=== PATIENT | female | born 1995 | race Caucasian/White ===

== ENCOUNTER 2021-02-06 14:05 | Emergency (ER) | payer SELFPAY ==
--- NOTE | ~2021-02-06 | CT_ITS ---
EXAMINATION: CT ABDOMEN AND PELVIS WITH CONTRAST CLINICAL INFORMATION: Left-sided pain COMPARISON: None TECHNIQUE: Multidetector volumetric images were obtained from the superior aspect of the liver through the pubic symphysis following administration 85 mL of Omnipaque 350 intravenous contrast. Sagittal and coronal reformatted images were obtained on the technologist's workstation. Oral contrast: Yes This CT examination was performed using dose optimization techniques as appropriate, variously including the following: *Automated exposure control *Adjustment of mA and/or kV according to patient size (this includes techniques or standardized protocols for targeted exams where dose is matched to indication/reason for exam; i.e. extremities or head) *Use of iterative reconstruction technique DLP: 589 mGy-cm FINDINGS: LUNG BASES: The visualized lung bases are unremarkable. LIVER, GALLBLADDER, AND BILIARY TREE: The liver is normal in size, shape, and attenuation. No focal hepatic lesion or biliary ductal dilatation is present. The gallbladder is unremarkable with no evidence of radiopaque gallstones, gallbladder wall thickening, or obvious pericholecystic inflammatory changes. PANCREAS: Unremarkable. SPLEEN: Unremarkable. ADRENAL GLANDS: Unremarkable. KIDNEYS AND URETERS: The kidneys are normal in size, shape, and attenuation. No hydronephrosis, hydroureter, or calculi seen. No perinephric stranding. BLADDER: Unremarkable. GASTROINTESTINAL TRACT: The small and large bowel are unremarkable. The appendix is unremarkable. ABDOMINAL WALL: No significant hernia is appreciated. LYMPH NODES: Normal. VASCULAR: Unremarkable PELVIC VISCERA:There is an IUD in the uterus in satisfactory position. There is a 3 x 3.5 x 4.8 cm left ovarian cyst. This appears complex with septation. There is a small amount of fluid in the pelvis. OSSEOUS STRUCTURES: Unremarkable. CT/CT abdomen pelvis w con IMPRESSION: IUD in the uterus in satisfactory position. 3 x 3.5 x 4.8 cm slightly complex left ovarian cyst all amount of fluid in the pelvis.
[2021-02-06 14:14] VITALS: BP 142/76; PULSE 80; RESP 16; TEMP 36.7; O2SAT 99
[2021-02-06 16:36] LABS: Glucose Urine UA NEG (NEG); Leukocyte Esterase Urine 2+ (NEG); Nitrite Urine NEG (NEG); Specific Gravity - Urine <= 1.005 (1.005-1.025); UACC Culture Trigger YES; Urine Blood 1+ (NEG); Urine Ketones NEG (NEG); Urine Protein NEG (NEG-TRACE)
[2021-02-06 16:37] LABS: Basophils Absolute Auto 0.1 X10*3/uL (0.0-0.2); Basophils Percent Auto 0.4 % (0-2); Eosinophils Absolute Auto 0.2 X10*3/uL (0.0-0.4); Eosinophils Percent Auto 1.3 % (0-4); Hematocrit 37.3 % (37-47); Hemoglobin 12.2 g/dl (12.0-16.0); Imm Gran Abs Auto 0.06 X10*3/uL (0.00-0.03); Imm Gran Pct Auto 0.4 % (0.0-0.4); Lymphocytes Absolute Auto 3.3 X10*3/uL (1.2-4.9); MANUAL DIFF FLAG NO; Mean Corpuscular HGB Conc 32.7 g/dl (31.0-35.0); Mean Corpuscular Hemoglobin 28.2 pg (27.0-33.0); Mean Corpuscular Volume 86.3 fL (80-98); Mean Platelet Volume 10.4 fL (9.4-12.3); Monocytes Absolute Auto 1.3 X10*3/uL (0.1-1.2); Monocytes Percent Auto 8.5 % (2-11); Neutrophils Absolute Auto 10.6 X10*3/uL (2.0-8.3); Neutrophils Percent Auto 68.4 % (45-73); Platelet Count 312 X10*3/uL (160-400); Red Blood Count 4.32 X10*6/uL (4.20-5.50); Red Cell Distribution Width 12.1 % (11.0-16.0); White Blood Count 15.5 X10*3/uL (4.8-10.8)
--- NOTE | 2021-02-06 16:44 | ED_ITS ---
HPI - Abdominal Pain General Chief Complaint: Abdominal Pain Stated Complaint: rabies exposure Time Seen by Provider: 02/06/21 16:09 Source: patient Mode of arrival: ambulatory Limitations: no limitations History of Present Illness HPI narrative: 25-year-old female with a past medical history of PCOS, endometriosis, migraine headaches and supraventricular arrhythmia presenting to the ED with complaints of left upper quadrant/left flank/left lower quadrant/left back pain for the past 3 days worse today. She reports associated chills. She also reports that she is here for rabies vaccination and immunoglobulin due to she rescued a baby raccoon and when her and her brought [facility] the [facility] 2 weeks later they called her and said that the raccoon tested positive for rabies and they instructed her and her to be vaccinated. Denies any fevers, neck pain/stiffness, nausea/vomiting, chest pain, shortness of breath, dysuria, hematuria, abnormal vaginal discharge, diarrhea, constipation or any other symptoms complaints or concerns at this time. MD elicited complaint: abdominal pain Pertinent past history: other (PCOS and endometriosis) Onset (ago): day(s) (3 days worse today) Pain Consistency: constant Location: LUQ, LLQ, L flank and other (Left back) Severity: severe Pain scale (0-10): 10 Quality: aching Radiation: none Migration to: no migration Exacerbating factors: nothing Relieving factors: nothing Associated symptoms: denies other symptoms Related Data Previous Rx's Medication Instructions Recorded levofloxacin 750 mg PO DAILY 7 Days #7 tab 02/06/21 oxycodone 5 mg PO Q8H PRN #10 tab 02/06/21 Allergies Allergy/AdvReac Type Severity Reaction Status Date / Time sumatriptan Allergy Rash Verified 02/06/21 14:16 [place] vaccine Allergy Unknown Uncoded 02/06/21 14:40 Review of Systems Review of Systems Constitutional : Positive chills, No Weight loss, No Fever, No Night Sweats, No Fatigue, No Malaise ENT/Mouth: No ear pain, No sore throat, No Difficulty swallowing Cardiovascular : No Chest Pain, No SOB, No Dyspnea on Exertion, No Orthopnea, No Edema, No Palpitations Respiratory : No Cough, No Sputum, No Wheezing, No Dyspnea Gastrointestinal : Positive abdominal pain, No Nausea, No Vomiting, No Diarrhea, No blood streaked emesis, No coffee-ground emesis, No gross hemateme sis, No blood streak stool, No gross hematochezia, No Melena Genitourinary : No irregular bleeding, No Dysuria, No Urinary Frequency, No Hematuria,No Urinary Incontinence, No Urgency, No Flank Pain Musculoskeletal : No joint pain, No Myalgias, No Joint Swelling Skin : No Skin Lesions, No rash Neuro : No Weakness, No Numbness, No Paresthesias, No Loss of Consciousness, NoDizziness, No Headache Psych : No Social Issues, Heme/Lymph: No Bruising, No Bleeding,No Lymphadenopathy Endocrine : No Polyuria, No Polydipsia, No Temperature Intolerance Yes all other systems are reviewed and are negative Physical Exam Vital Signs: Vital Signs: Last Vital Signs Temp 98.1 F 02/06/21 14:14 Pulse 80 02/06/21 14:14 Resp 16 02/06/21 14:14 BP 142/76 H 02/06/21 14:14 Pulse Ox 99 02/06/21 14:14 Body Mass Index 28.1 vital signs have been reviewed as normal and appeared to be correct. Blood pressure hypertensive 142/76. Heart rate normal. Respiration rate normal. Temperature normal. Oxygen saturation normal. Appearance: Alert. Oriented X3. No acute distress. Head: Normal external exam. Normocephalic. Eyes: PERRLA. EOMI. Conjunctiva and sclera normal. Eyelids normal. ENT: Pharynx normal. Uvula midline. Moist mucous membranes. Neck: Normal inspection. Neck supple. FROM. No adenopathy. No meningeal signs. CVS: Normal heart rate and rhythm. Heart sound normal. No murmurs noted. Pulses normal throughout. Respiratory: No respiratory distress. Painless inspiration. Breath sounds n ormal. No wheezes/rales/rhonchi noted. Chest nontender. No accessory muscle usage noted or decreased air movement noted. Abdomen: Soft and moderate tenderness to left upper quadrant/left lower quadr ant/left flank with guarding. Nondistended. No rigidity. Bowel sounds normal in all 4 quadrants. No distention noted. No organomegaly noted. No visible injury noted. No rebound tenderness. Negative Rovsing sign. Negative obturator's sign. Negative psoas sign. Negative Tavares sign. Back: Positive left CVA tenderness. No right CVA tenderness is noted. Full range of motion noted. Skin: Skin warm and dry. Normal skin color. Normal skin turgor. No rashes/lesions/lacerations noted. Extremities: Extremities exhibit normal range of motion. Extremities nontender. Neuro: Oriented X 3. No motor deficit. No sensory deficit. Reflexes normal. Normal steady gait. Course Course Course Narrative: 16pm - 25-year-old female with a past medical history of PCOS, endometriosis, migraine headaches and supraventricular arrhythmia presenting to the ED with complaints of left upper quadrant/left flank/left lower quadrant/left back pain for the past 3 days worse today. She reports associated chills. - Patient also has a separate complaint for positive rabies exposure after she took in a raccoon that was a baby for approximately 1 month and she brought it to the [facility] [place] and they called her and told her that the baby raccoon tested positive for rabies and they recommended her to get immunoglobulin and vaccine. Plan: Labs, CT scan abdomen pelvis IV contrast. Provide a L of IV fluids 15 mg of Toradol. I will give the patient the rabies immunoglobulin and her 1st rabies vaccine patient understands that she has to come back for 3 additional rabies vaccines then re-evaluate. Reevaluation(s) Reevaluation #1: - [place] [id number]. Otherwise all other labs are within normal limits. - UA with +2 leukocytes and 10-14 white blood cells consitent with UTI. Neg P regnancy. - CT scan of abd/pelvis c IV contrast revealed 3 x 3.5 x 4.8 cm slightly complex left ovarian cyst otherwise no other acute processes. - then when I went into the patient's room to discharge her she reported that she also wants to mention that she has noticed a lump to her left inner breast for the past 2 months and she is requesting an ultrasound to evaluate for possible benign lump versus malignancy - I discussed this with ultrasound and they report that this is not appropriate as we will not have proper follow-up if we found anything abnormal therefore I explained to the patient that she will be [facility] evaluation and treatment for her left breast lump and to return if any new or worsening symptoms. Also I will treat for UTI. Patient understands agrees with this plan Time: 19:49 MDM - Abdominal Pain Medical Records Attestation: I reviewed the patient's medical records. Lab Data Attestation: I reviewed the patient's lab results. Result diagrams: 02/06/21 16:19 02/06/21 16:19 Labs: Lab Results 02/06/21 02/06/21 02/06/21 Range/Units 16:19 16:19 16:19 WBC 15.5 H (4.8-10.8) X10*3/uL RBC 4.32 (4.20-5.50) X10*6/uL Hgb 12.2 (12.0-16.0) g/dl Hct 37.3 (37-47) % MCV 86.3 (80-98) fL MCH 28.2 (27.0-33.0) pg MCHC 32.7 (31.0-35.0) g/dl RDW 12.1 (11.0-16.0) % Plt Count 312 (160-400) X10*3/uL MPV 10.4 (9.4-12.3) fL Immature Gran % (Auto) 0.4 (0.0-0.4) % Neut % (Auto) 68.4 (45-73) % Lymph % (Auto) 21.0 (20-40) % [place] % (Auto) 8.5 (2-11) % Eos % (Auto) 1.3 (0-4) % Baso % (Auto) 0.4 (0-2) % Lymph # (Auto) 3.3 (1.2-4.9) X10*3/uL [place] # (Auto) 1.3 H (0.1-1.2) X10*3/uL Eos # (Auto) 0.2 (0.0-0.4) X10*3/uL Baso # (Auto) 0.1 (0.0-0.2) X10*3/uL Abs Immat Gran (auto) 0.06 H (0.00-0.03) X10*3/uL Absolute Neuts (auto) 10.6 H (2.0-8.3) X10*3/uL Absolute Nucleated RBC 0.000 (0.0-0.012) X10*3/uL Nucleated RBC % (auto) 0.0 (0.0-0.2) /100WBC Sodium 141 (135-145) mmol/L Potassium 4.0 (3.3-5.1) mmol/L Chloride 105 (96-108) mmol/L Carbon Dioxide 27 (22-29) mmol/L Anion Gap 13 (12-20) BUN 8 L (9-16) mg/dL Creatinine 0.80 (0.5-1.4) mg/dL Estim Creat Clear Calc 105.2 Estimated GFR > 60 Random Glucose 76 (60-115) mg/dL Calcium 9.9 (8.4-10.2) mg/dL Magnesium 1.9 (1.6-2.6) mg/dL Total Bilirubin 0.6 (0.0-1.0) mg/dL AST 14 (5-31) U/L ALT 11 (0-31) U/L Alkaline Phosphatase 66 (39-117) U/L Total Protein 8.0 (6.5-8.0) g/dL Albumin 4.9 (3.5-5.0) g/dL Lipase 20 (8-78) U/L Urine Color Urine Appearance Urine pH (5.0-8.0) Ur Specific [place] (1.005-1.025) Urine Protein (NEG-TRACE) MG/DL Urine Glucose (UA) (NEG) MG/DL Urine Ketones (NEG) MG/DL Urine Blood (NEG) Urine Nitrite (NEG) Ur Leukocyte Esterase (NEG) Urine RBC (0) /HPF Urine WBC (0-4) /HPF Urine WBC Clumps Ur Squamous Epith Cells /LPF Urine Bacteria /LPF Urine Test (NEGATIVE) 02/06/21 02/06/21 Range/Units 16:19 17:39 WBC (4.8-10.8) X10*3/uL RBC (4.20-5.50) X10*6/uL Hgb (12.0-16.0) g/dl Hct (37-47) % MCV (80-98) fL MCH (27.0-33.0) pg MCHC (31.0-35.0) g/dl RDW (11.0-16.0) % Plt Count (160-400) X10*3/uL MPV (9.4-12.3) fL Immature Gran % (Auto) (0.0-0.4) % Neut % (Auto) (45-73) % Lymph % (Auto) (20-40) % [place] % (Auto) (2-11) % Eos % (Auto) (0-4) % Baso % (Auto) (0-2) % Lymph # (Auto) (1.2-4.9) X10*3/uL [place] # (Auto) (0.1-1.2) X10*3/uL Eos # (Auto) (0.0-0.4) X10*3/uL Baso # (Auto) (0.0-0.2) X10*3/uL Abs Immat Gran (auto) (0.00-0.03) X10*3/uL Absolute Neuts (auto) (2.0-8.3) X10*3/uL Absolute Nucleated RBC (0.0-0.012) X10*3/uL Nucleated RBC % (auto) (0.0-0.2) /100WBC Sodium (135-145) mmol/L Potassium (3.3-5.1) mmol/L Chloride (96-108) mmol/L Carbon Dioxide (22-29) mmol/L Anion Gap (12-20) BUN (9-16) mg/dL Creatinine (0.5-1.4) mg/dL Estim Creat Clear Calc Estimated GFR Random Glucose (60-115) mg/dL Calcium (8.4-10.2) mg/dL Magnesium (1.6-2.6) mg/dL Total Bilirubin (0.0-1.0) mg/dL AST (5-31) U/L ALT (0-31) U/L Alkaline Phosphatase (39-117) U/L Total Protein (6.5-8.0) g/dL Albumin (3.5-5.0) g/dL Lipase (8-78) U/L Urine Color STRAW Urine Appearance CLEAR Urine pH 7.0 (5.0-8.0) Ur Specific [place] <= 1.005 (1.005-1.025) Urine Protein NEG (NEG-TRACE) MG/DL Urine Glucose (UA) NEG (NEG) MG/DL Urine Ketones NEG (NEG) MG/DL Urine Blood 1+ H (NEG) Urine Nitrite NEG (NEG) Ur Leukocyte Esterase 2+ H (NEG) Urine RBC 1-4 (0) /HPF Urine WBC 10-14 H (0-4) /HPF Urine WBC Clumps NOTED Ur Squamous Epith Cells 1+ /LPF Urine Bacteria 2+ /LPF Urine Test NEGATIVE (NEGATIVE) Discharge Plan Discharge Clinical Impression: Contact with and exposure to rabies, UTI (urinary tract infection), Breast lump Patient Disposition: Home, Self-Care Instructions: Rabies Vaccine (By injection), Rabies Immune Globulin (By injection), Urinary Tract Infection in Women (ED), Rabies (ED), Breast Mass (ED) Additional Instructions: You need to follow-up with short-stay surgery for the rest of your rabies vaccine on 02/09/2021, 02/13/2021 and 02/20/2021. You also need to [facility] with the paperwork that I gave you at [facility] in [place] or [address] [place] [address] in [place] at [phone] Prescriptions: New levofloxacin 750 mg tablet 750 mg PO DAILY 7 Days Qty: 7 RF: 0 oxycodone 5 mg tablet 5 mg PO Q8H PRN (Reason: pain ) Qty: 10 RF: 0 Referrals: Jono Friedman MD [Physician] - 2 days Stand Alone Forms: Work/School Release Print Language: Ma[place] [facility] Past Medical History Attestation statement: The following information was validated with the patient. Medical History Endometriosis Migraine PCOS (polycystic ovarian syndrome) Supraventricular arrhythmia Social History Social History Advance Directives: No Advance Directives Information Provided: No
[2021-02-06] MEDS: Rabies Vaccine (PCEC)/PF 1 ML VIAL IM (16:46)
[2021-02-06 16:48] VITALS: BMI 28.1
[2021-02-06 17:00] LABS: Alanine Aminotransferase 11 U/L (0-31); Albumin Level 4.9 g/dL (3.5-5.0); Alkaline Phosphatase 66 U/L (39-117); Anion Gap 13 (12-20); Aspartate Amino Transferase 14 U/L (5-31); Bilirubin Total 0.6 mg/dL (0.0-1.0); Blood Urea Nitrogen 8 mg/dL (9-16); Calcium 9.9 mg/dL (8.4-10.2); Carbon Dioxide 27 mmol/L (22-29); Chloride 105 mmol/L (96-108); Creatinine Clr Calc Pharmacy 105.2; Estimated Glomerular Filt Rate > 60; Glucose Random 76 mg/dL (60-115); Magnesium 1.9 mg/dL (1.6-2.6); Sodium 141 mmol/L (135-145)
[2021-02-06] MEDS: Ketorolac Tromethamine 15 MG/ML VIAL IVPUSH (17:10)
[2021-02-06] MEDS: Rabies Immune Globulin/PF 1,500 UNIT/5 ML VIAL 1488 UNIT IM (17:11)
[2021-02-06 17:18] LABS: Appearance Urine CLEAR; Bacteria Urine 2+ /LPF; Color Urine STRAW; Squamous Epithelial Cell Urine 1+ /LPF
[2021-02-06 17:19] LABS: WBC Clumps Urine NOTED
[2021-02-06] MEDS: ondansetron HCL 4 MG/2 ML VIAL IVPUSH (18:05)
[2021-02-06] MEDS: HYDROmorphone HCl 1 MG/ML SYRINGE IVPUSH (18:06)
[2021-02-06 18:08] LABS: UPreg QC Valid YES; Urine Pregnancy NEGATIVE (NEGATIVE)
[2021-02-06] MEDS: iohexoL 350 MG/ML 100 ML INFUS..BTL IV (18:37)
[2021-02-06 20:03] LABS: Lipase 20 U/L (8-78)
== END 2021-02-06 20:21 | disposition home or self-care (01) ==
PROVIDERS: Physician Assistant Medical; Emergency Provider Internal Medicine
DX: N39.0 Urinary tract infection, site not specified (principal); N63.20 Unspecified lump in the left breast, unspecified quadrant; Z20.3 Contact with and (suspected) exposure to rabies; Z29.14 Encounter for prophylactic rabies immune globulin
CPT/HCPCS: 36415; 74177; 80053; 81001; 81003; 81025; 83690; 83735; 85025; 87086; 87088; 87186; 90375; 90471; 90675; 96372; 96374; 96375; 99283; 99284; J1170; J1885; J2405; Q9967

== ENCOUNTER 2021-02-09 09:32 | Outpatient (REF) | payer SELFPAY | END 2021-02-09 09:33 | disposition home or self-care (01) | LOC: HO.MDS 09:32 | PROVIDERS: Visit Provider Physician Assistant Medical | DX: Z29.14 Encounter for prophylactic rabies immune globulin (principal); N39.0 Urinary tract infection, site not specified; N63.20 Unspecified lump in the left breast, unspecified quadrant; Z20.3 Contact with and (suspected) exposure to rabies | CPT/HCPCS: 90471; 90675 ==

== ENCOUNTER 2021-02-13 07:41 | Outpatient (REF) | payer SELFPAY | END 2021-02-13 07:42 | disposition home or self-care (01) | LOC: HO.MDS 07:41 | DX: Z29.14 Encounter for prophylactic rabies immune globulin (principal); N39.0 Urinary tract infection, site not specified; N63.20 Unspecified lump in the left breast, unspecified quadrant; Z20.3 Contact with and (suspected) exposure to rabies | CPT/HCPCS: 90471; 90675 ==

== ENCOUNTER 2021-02-15 02:12 | Emergency (ER) | payer SELFPAY ==
--- NOTE | ~2021-02-15 | US_ITS ---
EXAMINATION: ULTRASOUND PELVIS CLINICAL INFORMATION: Known ovarian cyst, worsening pain COMPARISON: CT 02/06/2021 TECHNIQUE: Sonographic evaluation of the pelvis was performed transabdominally and transvaginally. FINDINGS: The uterus measures 7.7 cm in length and 4.8 x 5.5 cm in AP and transverse dimensions. Endometrial stripe measures 0.8 cm in thickness. IUD noted along the endometrium. Trace free fluid is seen in the cervix. The right ovary measures 3.8 x 1.7 x 1.9 cm. There is a simple right ovarian cyst measuring up to 2.3 cm. The left ovary measures 5.4 x 2.8 x 3.7 cm. There is a left ovarian cyst measuring up to 3.6 cm with a septation. There is also a simple left ovarian cyst measuring up to 2.0 cm. Doppler evaluation demonstrates normal-appearing flow in the bilateral ovaries. Small amount of free fluid is noted. US/US pelvic and transvaginal IMPRESSION: Bilateral ovarian cysts, largest on the left measuring up to 3.6 cm with a septation. Sonographic follow-up in 6-8 weeks would be helpful to assess for resolution. Small amount of pelvic free fluid is nonspecific and may be physiologic.
[2021-02-15 02:33] VITALS: BP 150/73; PULSE 85; RESP 18; TEMP 36.9; O2SAT 99; BMI 27.4
[2021-02-15 03:09] LABS: MANUAL DIFF FLAG NO
[2021-02-15 03:12] LABS: Basophils Percent Auto 0.4 % (0-2); Eosinophils Absolute Auto 0.2 X10*3/uL (0.0-0.4); Eosinophils Percent Auto 2.3 % (0-4); Hematocrit 34.9 % (37-47); Hemoglobin 11.6 g/dl (12.0-16.0); Imm Gran Abs Auto 0.02 X10*3/uL (0.00-0.03); Imm Gran Pct Auto 0.3 % (0.0-0.4); Lymphocytes Absolute Auto 3.4 X10*3/uL (1.2-4.9); Lymphocytes Percent Auto 43.6 % (20-40); Mean Corpuscular HGB Conc 33.2 g/dl (31.0-35.0); Mean Corpuscular Hemoglobin 28.9 pg (27.0-33.0); Mean Corpuscular Volume 86.8 fL (80-98); Monocytes Percent Auto 13.2 % (2-11); Neutrophils Absolute Auto 3.2 X10*3/uL (2.0-8.3); Neutrophils Percent Auto 40.2 % (45-73); Platelet Count 302 X10*3/uL (160-400); Red Blood Count 4.02 X10*6/uL (4.20-5.50); Red Cell Distribution Width 12.2 % (11.0-16.0); White Blood Count 7.8 X10*3/uL (4.8-10.8)
[2021-02-15 03:52] LABS: Alanine Aminotransferase 14 U/L (0-31); Albumin Level 4.5 g/dL (3.5-5.0); Alkaline Phosphatase 58 U/L (39-117); Anion Gap 12 (12-20); Aspartate Amino Transferase 16 U/L (5-31); Bilirubin Total < 0.2 mg/dL (0.0-1.0); Blood Urea Nitrogen 9 mg/dL (9-16); Calcium 9.5 mg/dL (8.4-10.2); Carbon Dioxide 27 mmol/L (22-29); Chloride 105 mmol/L (96-108); Creatinine Clr Calc Pharmacy 112.5; Estimated Glomerular Filt Rate > 60; Glucose Random 99 mg/dL (60-115); Potassium 4.4 mmol/L (3.3-5.1); Sodium 140 mmol/L (135-145); Total Protein 7.5 g/dL (6.5-8.0)
--- NOTE | 2021-02-15 04:23 | ED.ABDPAIN ---
HPI - Abdominal Pain General Chief Complaint: Abdominal Pain Stated Complaint: abd pain for 2 weeks Time Seen by Provider: 02/15/21 04:07 Source: patient Mode of arrival: ambulatory Limitations: no limitations History of Present Illness HPI narrative: Patient emergency room complaining of left-sided abdominal pain. Patient states the pain has been constant for about 3 weeks. Patient was seen here on February 06 for the same reason. Complaining of nausea. Related Data Previous Rx's Medication Instructions Recorded levofloxacin 750 mg PO DAILY 7 Days #7 tab 02/06/21 tramadol 50 mg PO Q8H PRN #10 tab 02/06/21 oxycodone-acetaminophen [Percocet] 1 tab PO TID PRN #10 tab 02/15/21 Allergies Allergy/AdvReac Type Severity Reaction Status Date / Time sumatriptan Allergy Rash Verified 02/06/21 14:16 [place] vaccine Allergy Unknown Uncoded 02/06/21 14:40 Review of Systems Review of Systems Constitutional : No Weight loss, No Fever, No Chills, No Night Sweats, No Fatigue, No Malaise ENT/Mouth : No Hearing loss, No Ear Pain, No Nasal Congestion, No Sinus Pain, No Hoarseness, No sore throat, No Rhinorrhea, No Swallowing Difficulty Eyes: No Eye Pain, No Swelling, No Redness, No Foreign Body, No Discharge, No Vision Changes Cardiovascular : No Chest Pain, No SOB, No Dyspnea on Exertion, No Orthopnea, No Edema, No Palpitations Respiratory : No Cough, No Sputum, No Wheezing, No Smoke Exposure, No Dyspnea Gastrointestinal : No Nausea, No Vomiting, No Diarrhea, No Constipation, complaining of left lower quadrant pain, No Hematochezia, No Melena Genitourinary : no irregular bleeding, No Dysuria, No Urinary Frequency, No Hematuria, No Urinary Incontinence, No Urgency, No Flank Pain, No Urinary Flow Changes, No Hesitancy Musculoskeletal : No joint pain, No Myalgias, No Joint Swelling Skin : No Skin Lesions, No rash Neuro : No Weakness, No Numbness, No Paresthesias, No Loss of Consciousness, No Dizziness, No Headache Psych : No Anxiety/Panic, No Depression, No SI/HI/AH/VH, No Social Issues, Heme/Lymph: No Bruising, No Bleeding,No Lymphadenopathy Endocrine : No Polyuria, No Polydipsia, No Temperature Intolerance Physical Exam Vital Signs: Vital Signs: Last Vital Signs Temp 98.4 F 02/15/21 02:33 Pulse 85 02/15/21 02:33 Resp 18 02/15/21 02:33 BP 150/73 H 02/15/21 02:33 Pulse Ox 99 02/15/21 02:33 Body Mass Index 27.4 Appearance: Alert. Oriented X3. No acute distress. Eyes: Pupils equal, round and reactive to light. ENT: Pharynx normal. Neck: Normal inspection. Neck supple. No lymph nodes noted. No crepitus CVS: Normal heart rate and rhythm. Pulses normal. Normal S1 and S2 Respiratory: No respiratory distress. Breath sounds normal. No Wheezing. No rales Abdomen: Soft and nontender. No rigidity. No distention. good BS x4 Skin: Skin warm and dry. Normal skin color. Normal skin turgor. Extremities: No lower extremity edema. No lower extremity edema. No Lacerations. No Rash Neuro: Oriented X 3. No motor deficit. No sensory deficit. Moving all extermities. No slurred speech. Course Course Course Narrative: Ultrasound to r/o ovarian torsion/cyst rupture pending Patient declined Toradol. Patient was given 1 dose of oxycodone. I discussed the ultrasound with the patient, patient does have bilateral ovarian cysts. Doppler demonstrated normal appearing flow in bilateral ovaries. Patient struck to follow-up with her OBGYN. MDM - Abdominal Pain Lab Data Result diagrams: 02/15/21 03:06 02/15/21 03:06 Labs: Lab Results 02/15/21 02/15/21 Range/Units 03:06 03:06 WBC 7.8 (4.8-10.8) X10*3/uL RBC 4.02 L (4.20-5.50) X10*6/uL Hgb 11.6 L (12.0-16.0) g/dl Hct 34.9 L (37-47) % MCV 86.8 (80-98) fL MCH 28.9 (27.0-33.0) pg MCHC 33.2 (31.0-35.0) g/dl RDW 12.2 (11.0-16.0) % Plt Count 302 (160-400) X10*3/uL MPV 10.0 (9.4-12.3) fL Immature Gran % (Auto) 0.3 (0.0-0.4) % Neut % (Auto) 40.2 L (45-73) % Lymph % (Auto) 43.6 H (20-40) % [place] % (Auto) 13.2 H (2-11) % Eos % (Auto) 2.3 (0-4) % Baso % (Auto) 0.4 (0-2) % Lymph # (Auto) 3.4 (1.2-4.9) X10*3/uL [place] # (Auto) 1.0 (0.1-1.2) X10*3/uL Eos # (Auto) 0.2 (0.0-0.4) X10*3/uL Baso # (Auto) 0.0 (0.0-0.2) X10*3/uL Abs Immat Gran (auto) 0.02 (0.00-0.03) X10*3/uL Absolute Neuts (auto) 3.2 (2.0-8.3) X10*3/uL Absolute Nucleated RBC 0.000 (0.0-0.012) X10*3/uL Nucleated RBC % (auto) 0.0 (0.0-0.2) /100WBC Sodium 140 (135-145) mmol/L Potassium 4.4 (3.3-5.1) mmol/L Chloride 105 (96-108) mmol/L Carbon Dioxide 27 (22-29) mmol/L Anion Gap 12 (12-20) BUN 9 (9-16) mg/dL Creatinine 0.74 (0.5-1.4) mg/dL Estim Creat Clear Calc 112.5 Estimated GFR > 60 Random Glucose 99 (60-115) mg/dL Calcium 9.5 (8.4-10.2) mg/dL Total Bilirubin < 0.2 (0.0-1.0) mg/dL AST 16 (5-31) U/L ALT 14 (0-31) U/L Alkaline Phosphatase 58 (39-117) U/L Total Protein 7.5 (6.5-8.0) g/dL Albumin 4.5 (3.5-5.0) g/dL Beta HCG, Quant < 2 mIU/mL Imaging Data US - abdomen: Radiologist's impression: The uterus measures 7.7 cm in length and 4.8 x 5.5 cm in AP and transverse dimensions. Endometrial stripe measures 0.8 cm in thickness. IUD noted along the endometrium. Trace free fluid is seen in the cervix. The right ovary measures 3.8 x 1.7 x 1.9 cm. There is a simple right ovarian cyst measuring up to 2.3 cm. The left ovary measures 5.4 x 2.8 x 3.7 cm. There is a left ovarian cyst measuring up to 3.6 cm with a septation. There is also a simple left ovarian cyst measuring up to 2.0 cm. Doppler evaluation demonstrates normal-appearing flow in the bilateral ovaries. Small amount of free fluid is noted. US/US pelvic and transvaginal IMPRESSION: Bilateral ovarian cysts, largest on the left measuring up to 3.6 cm with a septation. Sonographic follow-up in 6-8 weeks would be helpful to assess for resolution. Small amount of pelvic free fluid is nonspecific and may be physiologic Discharge Plan Discharge Clinical Impression: Bilateral ovarian cysts Patient Disposition: Home, Self-Care Instructions: Ovarian Cyst (ED) Additional Instructions: Please follow-up with your primary care physician tomorrow. If you have any worsening or new symptoms, please return to the emergency room or call 911 Prescriptions: New oxycodone-acetaminophen [Percocet] 5-325 mg tablet 1 tab PO TID PRN (Reason: pain) Qty: 10 RF: 0 No Action levofloxacin 750 mg tablet 750 mg PO DAILY 7 Days Qty: 7 RF: 0 tramadol 50 mg tablet 50 mg PO Q8H PRN (Reason: pain) Qty: 10 RF: 0 PMFSH Past Medical History Medical History Endometriosis Migraine PCOS (polycystic ovarian syndrome) Supraventricular arrhythmia Social History Social History Advance Directives: No Advance Directives Information Provided: No Patient : No
[2021-02-15 04:42] LABS: HCG Quantitative < 2 mIU/mL
--- NOTE | 2021-02-15 06:27 | PC.NURSE ---
Patient refused both Toradol and Oxycodone. Pt states neither of those medications work. I'm the weird patient where nothing works. You should have this documented from the last time I was here, so you shouldn't be able to order those medications anymore. I want Tramadol. aware. okayed ordering Tramadol 50mg PO. Plan to discharge home with RX Tramadol.
[2021-02-15] MEDS: traMADoL HCL 50 MG TABLET PO (06:33)
== END 2021-02-15 07:03 | disposition home or self-care (01) ==
PROVIDERS: Emergency Provider Emergency Medicine
DX: N83.202 Unspecified ovarian cyst, left side (principal); N83.201 Unspecified ovarian cyst, right side
CPT/HCPCS: 36415; 76830; 76856; 80053; 84702; 85025; 96374; 99283; 99284

== ENCOUNTER 2021-02-20 07:37 | Outpatient (REF) | payer SELFPAY | END 2021-02-20 07:38 | disposition home or self-care (01) | LOC: HO.MDS 07:37 | DX: Z29.14 Encounter for prophylactic rabies immune globulin (principal); N39.0 Urinary tract infection, site not specified; N63.20 Unspecified lump in the left breast, unspecified quadrant; Z20.3 Contact with and (suspected) exposure to rabies | CPT/HCPCS: 90471; 90675 ==